=== PATIENT | female | born 1980 | race Caucasian/White ===

== ENCOUNTER 2024-08-27 07:20 | Outpatient (CLI) | payer OTHER, SELFPAY ==
--- NOTE | ~2024-08-27 | US_ITS ---
EXAMINATION: US abdomen limited DATE: 08/27/2024 07:40 INDICATION: Epigastric pain TECHNIQUE: Multiple grayscale and Doppler ultrasound images of the abdomen were obtained. COMPARISON: None FINDINGS: The pancreatic head and body are normal in appearance. The pancreatic tail is not visualized. The vi sualized proximal to mid aorta and inferior vena cava are normal. Liver has normal echogenicity and c ontour, with a smooth surface. No liver lesion identified. No intrahepatic biliary duct dilation susp ected. Portal venous flow was seen in the hepatopetal, normal direction and has normal Doppler wavefo rm. The gallbladder is normal in appearance. There is no cholelithiasis. The common bile duct measur es 3 mm, which is normal. Sonographic Palma sign was reported as negative by the python java developer. IMPRESSION: 1. Normal right upper quadrant ultrasound. Reviewed, dictated and finalized at location A.
== END 2024-08-27 07:21 | disposition home or self-care (01) ==
LOC: MICIMG 07:21
PROVIDERS: PCP Family Medicine; Visit Provider Family Medicine
DX: R10.13 Epigastric pain (principal)
CPT/HCPCS: 76705

== ENCOUNTER 2024-11-10 06:27 | Day surgery (SDC) | payer OTHER, SELFPAY ==
[2024-09-09 09:14] VITALS: BMI 32.2
[2024-10-24 11:27] VITALS: BMI 31.8
--- NOTE | 2024-11-09 15:04 | WPDANESEPPF ---
Anes - Initial Pre Proc Eval Procedure: Operation Date: 11/10/24 08:30 Proposed Procedures p Screening Colonoscopy - Ted King MD Date/Time: 11/09/24 15:04 Surgeon: Ted King MD Pre Op Diagnosis: Screening for Neoplasm of Colon Patient Data Age: 44 Gender: F Height: 1.63 m Weight: 84 kg Allergies Allergy/AdvReac Type Severity Reaction Status Date / Time No Known Allergies Allergy Verified 11/10/24 07:08 Home Medications ?Medication ?Instructions ?Recorded ?Confirmed ?Type cholecalciferol (vitamin D3) 1,250 1,250 mcg PO WEEKLY #12 tabs 08/25/24 11/10/24 Rx mcg (50,000 unit) tablet levonorgestrel 0.1 mg-ethinyl 1 tablet PO DAILY 10/24/24 11/10/24 History estradiol 0.02 mg (21)/iron (7) tablet (Balcoltra) omeprazole 40 mg capsule,delayed 40 mg PO HS 10/24/24 10/24/24 History release Patient hx anesthesia problems: none Family hx anesthesia problems: none Results Review: All pre-operative results and documents have been reviewed as part of the pre-operative evaluation. FORMERLY [facility], [facility] Past Medical History Medical History (Updated 11/10/24 @ 07:24 by Ted King MD) GERD (gastroesophageal reflux disease) Transient gluten sensitivity (~2017) Surgical History Surgical History Hx of section (~2012) Family History Family History Other Hypertension Social History Social History Smoking packs per day: 1 Smoking cigarettes per day: 20.0 Years smoked: 2 Smoking pack-years: 2.00 Smoking status: Former smoker Tobacco type: cigarettes Second hand tobacco smoke exposure: No Smoking end date: 11/23/99 Alcohol intake: current Drinks per week: 2 Alcohol use details: consumes 2 beers occasionally Substance use: never Substance use type: does not use Lack of Transportation: No Lack of Food: Never True Current Housing: I Have Housing Concerned About Future Housing: No Difficulty Paying Gas/Electric Bills: No Difficulty Paying for Meds: No Currently Unemployed: No Education: Bachelor's Degree Difficulty w/ Childcare or Family Care: No Living arrangements: with family Occupation/Education: occupation Gender identity (if verbalized by the patient): Female Spiritual care concerns: No Agree to blood products: Yes Anes - Eval Final PreProcedure Day of Procedure 11/09/24 15:04 Patient weight: obese Heart: regular rate and rhythm Lungs: clear to auscultation Airway: Mallampati scale class II Neurological: alert and oriented Last oral intake: >/= 8 hours ASA classification: II Emergent: no Anesthetic plan: proceed Anesthesia type and monitoring: general GIVS and standard monitoring Results Review: All pre-operative results and documents have been reviewed as part of the pre-operative evaluation. Informed Consent: The patient's anesthetic plan and its attendant risks and benefits were discussed with the patient/family/POA. Questions were solicited and answers provided to the satisfaction of the patient/family/POA.
[2024-11-10 07:17] VITALS: BMI 31.0
[2024-11-10 07:18] VITALS: BP 137/82; PULSE 78; RESP 16; TEMP 37.1; O2SAT 100
--- NOTE | 2024-11-10 07:22 | PM.HPGS ---
History of Present Illness History of Present Illness Consent: Risks, benefits, and alternatives have been discussed and questions answered. Patient agrees to proceed with procedure. Chief complaint: Screening for Neoplasm of Colon Narrative: Lexy Bone is a 44 year old female presents for screening colonoscopy. Patient is are normal. Patient denies abdominal pain. She has had no bleeding. Family history is noncontributary. Review of Systems Review of Systems: All systems reviewed & are unremarkable except as noted in HPI and below PMFSH Past Medical History Medical History (Updated 11/10/24 @ 07:24 by Ted King MD) GERD (gastroesophageal reflux disease) Transient gluten sensitivity (~2017) Surgical History Surgical History Hx of section (~2012) Family History Family History Other Hypertension Social History Social History Smoking packs per day: 1 Smoking cigarettes per day: 20.0 Years smoked: 2 Smoking pack-years: 2.00 Smoking status: Former smoker Tobacco type: cigarettes Second hand tobacco smoke exposure: No Smoking end date: 11/23/99 Alcohol intake: current Drinks per week: 2 Alcohol use details: consumes 2 beers occasionally Substance use: never Substance use type: does not use Lack of Transportation: No Lack of Food: Never True Current Housing: I Have Housing Concerned About Future Housing: No Difficulty Paying Gas/Electric Bills: No Difficulty Paying for Meds: No Currently Unemployed: No Education: Bachelor's Degree Difficulty w/ Childcare or Family Care: No Living arrangements: with family Occupation/Education: occupation Gender identity (if verbalized by the patient): Female Spiritual care concerns: No Agree to blood products: Yes Meds Home Medications and Allergies Home Medications ?Medication ?Instructions ?Recorded ?Confirmed ?Type cholecalciferol (vitamin D3) 1,250 1,250 mcg PO WEEKLY #12 tabs 08/25/24 11/10/24 Rx mcg (50,000 unit) tablet levonorgestrel 0.1 mg-ethinyl 1 tablet PO DAILY 10/24/24 11/10/24 History estradiol 0.02 mg (21)/iron (7) tablet (Balcoltra) omeprazole 40 mg capsule,delayed 40 mg PO HS 10/24/24 10/24/24 History release Allergies Allergy/AdvReac Type Severity Reaction Status Date / Time No Known Allergies Allergy Verified 11/10/24 07:08 Exam Narrative: Physical exam reveals patient to be alert. Vital stable. HEENT is unremarkable. Patient is anicteric. Lungs are clear to auscultation and percussion. Heart is without murmur extra sounds. Abdomen bowel sounds are present soft nontender with no organomegaly. Digital external rectal exam normal. Assessment and Plan Assessment and plan (1) Screen for colon cancer: Code(s): Z12.11 - Encounter for screening for malignant neoplasm of colon Status: Acute Assessment and Plan: Presents for initial screening colonoscopy. She offers no complaints. Further recommendations may be given after endoscopy.
[2024-11-10] MEDS: LACTATED RINGERS 1,000 ML 150 ML IV CONT (07:36)
[2024-11-10 08:38] VITALS: BP 118/75; PULSE 79; RESP 16; O2SAT 99
[2024-11-10 08:48] VITALS: BP 114/80; PULSE 78; RESP 16; O2SAT 100
[2024-11-10 08:58] VITALS: BP 124/73; PULSE 74; RESP 16; O2SAT 100
--- NOTE | 2024-11-10 10:43 | WPDANESPN ---
Anes - Prog Note Post-Op Date/Time: 11/10/24 10:43 Cardiovascular status: normal Respiratory status: normal Airway patency: baseline Mental status: baseline Post-Op hydration status: normal Vital Signs: Last Vital Signs Temp 37.1 C 11/10/24 07:18 Pulse 74 11/10/24 08:58 Resp 16 11/10/24 08:58 BP 124/73 11/10/24 08:58 Pulse Ox 100 11/10/24 08:58 O2 Del Method Room Air 11/10/24 08:58 Pain Score (VAS): 0 I/O: Intake & Output 11/09/24 11/10/24 11/10/24 23:59 07:59 15:59 Intake Total 700 Balance 700 Post-procedural complaints: none Patient Feedback: Patient satisfied with anesthetic care. Other Findings: Patient vital signs back to baseline. Patient denies nausea and vomiting. Patient's pain under control. Patient OK for discharge.
== END 2024-11-10 09:03 | disposition home or self-care (01) ==
PROVIDERS: PCP Family Medicine; Visit Provider Internal Medicine Gastroenterology
PROC: 0DJD8ZZ Inspection of Lower Intestinal Tract, Via Natural or Artificial Opening Endoscopic (ICD-10-PCS; CPT 45378; principal; 2024-11-10 08:30)
DX: Z12.11 Encounter for screening for malignant neoplasm of colon (principal)
CPT/HCPCS: 45378